=== PATIENT | female | born 1940 | race Caucasian/White ===

== ENCOUNTER 2017-07-17 11:29 | Emergency (ER) | payer MEDICAID ==
[~2017-07-17] VITALS: Ht 152.4 cm; Wt 61.2 kg
[2017-07-17 11:40] VITALS: BP 140/75
== END 2017-07-17 14:54 | disposition left against medical advice (07) ==
LOC: ED 11:29
DX: Z53.21 Procedure and treatment not carried out due to patient leaving prior to being seen by health care provider (principal)